=== PATIENT | female | born 2000 | race African-American/Black ===

== ENCOUNTER 2023-09-23 16:31 | Emergency (ER) | payer MEDICAID, OTHER ==
[~2023-09-23] VITALS: Ht 167.6 cm; Wt 61.0 kg
[~2023-09-23 16:31] MED LIST: HYDR-4001 MT; ONDA4TAB11 PO
[2023-09-23 16:42] VITALS: BP 117/50; PULSE 54; RESP 18; TEMP 98.4; O2SAT 99
[2023-09-23] MEDS ORDERED: IBUPROFEN 600MG TABLET PO ONE (17:00)
== END 2023-09-23 17:25 | disposition left against medical advice (07) ==
LOC: ER 16:31
DX: S39.012A Strain of muscle, fascia and tendon of lower back, initial encounter (principal); S13.4XXA Sprain of ligaments of cervical spine, initial encounter; V49.59XA Passenger injured in collision with other motor vehicles in traffic accident, initial encounter; Y93.89 Activity, other specified; Y92.89 Other specified places as the place of occurrence of the external cause; Y99.8 Other external cause status
CPT/HCPCS: 99283